=== PATIENT | female | born 1935 | race Caucasian/White ===

== ENCOUNTER 2018-10-01 16:13 | Emergency (ER) | payer MEDICARE, OTHER ==
[~2018-10-01] VITALS: Ht 157.5 cm; Wt 58.1 kg
--- NOTE | 2018-10-01 16:30 | NUR ---
PT IS IN ROOM #1B. DR CALLOWAY EVALUATED THE PT.
--- NOTE | 2018-10-01 16:50 | NUR ---
Patient taken to CT.
--- NOTE | 2018-10-01 16:59 | NUR ---
Patient returned from CT.
[2018-10-01] MEDS ORDERED: INSU100I24 SQ (17:01)
[2018-10-01] MEDS ORDERED: METF-442 PO (17:01)
[2018-10-01] MEDS ORDERED: DORZ10DR11 EACHEYE (17:01)
[2018-10-01] MEDS ORDERED: CHOL20004 PO (17:01)
[2018-10-01] MEDS ORDERED: BIMA2.5D5 EACHEYE (17:01)
[2018-10-01] MEDS ORDERED: FERR325T28 PO (17:01)
[2018-10-01] MEDS ORDERED: BRIM5DRO3 EACHEYE (17:01)
[2018-10-01] MEDS ORDERED: TACR100O2 TP (17:01)
[2018-10-01] MEDS ORDERED: ESTR42.53 VG (17:01)
[2018-10-01] MEDS ORDERED: NATE60TA4 PO (17:01)
[2018-10-01] MEDS ORDERED: DULA1.5P SQ (17:01)
[2018-10-01] MEDS ORDERED: BETA15CR4 TP (17:01)
[2018-10-01] MEDS ORDERED: CALC-494 PO (17:01)
--- NOTE | 2018-10-01 17:15 | NUR ---
Dr. Ross at bedside reviewing results of head CT.
--- NOTE | 2018-10-01 17:20 | NUR ---
Patient given pain medication as ordered.
[2018-10-01] MEDS ORDERED: HYDROCODONE/APAP 10-325 MG TABLET ONE (17:24)
[2018-10-01 17:26] VITALS: BP 143/77
[2018-10-01] MEDS ORDERED: HYDROCODONE/APAP 10-325 MG TABLET PO ONE (17:30)
--- NOTE | 2018-10-01 17:37 | NUR ---
PT WAS EVALUATED BY DR CALLOWAY. PT WAS D/C'd TO HOME. D/C INSTRUCTIONS GIVEN TO THE PT. GAIT IS STABLE. NO S/S OF ACUTE DISTRESS. PT WENT HOME BY [facility].
== END 2018-10-01 17:43 | disposition home or self-care (01) ==
LOC: ER 16:13
DX: R51 Headache (principal); E11.9 Type 2 diabetes mellitus without complications; Z88.0 Allergy status to penicillin; Z88.8 Allergy status to other drugs, medicaments and biological substances; Z79.899 Other long term (current) drug therapy; Z79.4 Long term (current) use of insulin
CPT/HCPCS: 70450; A4663